=== PATIENT | female | born 1990 | race Caucasian/White ===

== ENCOUNTER → 2020-10-24 | Outpatient (CLI) | payer BC ==
--- NOTE | 2020-10-24 11:04 | USB ---
Reason for exam: clinical finding. History: Family history of breast cancer in maternal grandmother at age 60. Took hormonal contraceptives for 5 years beginning at age 18. Indicated problem(s): pain in the right breast. Physical Findings: Nurse did not find any significant physical abnormalities on exam. US Breast RT Right complete breast ultrasound includes all four quadrants, the retroareolar region and axilla. Finding demonstrates dense tissue seen at BB. These results were verbally communicated with the patient and result sheet given to the patient on 10/24/20. ASSESSMENT: Negative, BI-RAD 1 RECOMMENDATION: Routine screening mammogram of both breasts at age 40. Manage patient on a clinical basis.
== END | disposition home or self-care (01) ==
LOC: MERGE 09:40 → RADUSWWP 09:46
PROVIDERS: ATTEND Internal Medicine
DX: N64.4 Mastodynia (principal)

== ENCOUNTER → 2021-08-02 | Outpatient (CLI) | payer BC ==
--- NOTE | 2021-08-02 14:11 | MM ---
Reason for exam: clinical finding. History: Patient is nulliparous. Family history of breast cancer in maternal grandmother at age 60. Took hormonal contraceptives for 5 years beginning at age 18. Physical Findings: Nurse Summary: 1cm nodule in the left breast at 8 o'clock (nurse alondra). MG Diagnostic Mammo w CAD TENZIN Bilateral CC and MLO view(s) were taken. The breast tissue is heterogeneously dense. This may lower the sensitivity of mammography. There is no discrete abnormality including area of concern right breast. These results were verbally communicated with the patient and result sheet given to the patient on 08/02/21. ASSESSMENT: Incomplete: need additional imaging evaluation, BI-RAD 0 RECOMMENDATION: Ultrasound of the right breast.
--- NOTE | 2021-08-02 14:12 | USB ---
Reason for exam: additional evaluation requested from abnormal screening. History: Patient is nulliparous. Family history of breast cancer in maternal grandmother at age 60. Took hormonal contraceptives for 5 years beginning at age 18. US Breast Workup Limited RT Right limited breast ultrasound including focal area of concern, retroareolar and axilla demonstrates no cystic or solid lesion seen. No lesion seen at 8 o'clock palpable. These results were verbally communicated with the patient and result sheet given to the patient on 08/02/21. ASSESSMENT: Negative, BI-RAD 1 RECOMMENDATION: Routine screening mammogram of both breasts at age 40. Manage patient on a clinical basis.
== END | disposition home or self-care (01) ==
LOC: RADMAMWWP 11:00
PROVIDERS: ATTEND Internal Medicine
DX: N63.0 Unspecified lump in unspecified breast (principal)
CPT/HCPCS: 77066

== ENCOUNTER → 2022-09-19 | Outpatient (CLI) | payer BC ==
--- NOTE | 2022-09-19 11:52 | MM ---
Reason for Exam: Clinical finding. Last mammogram was performed 1 year(s) and 1 month(s) ago. Indicated Problems: Lump or thickening of the right side (size 1.5) for 2 Year(s). Patient History: Menarche at age 13. Patient has no children. Hormonal Contraceptives for 5 years from age 18 until age 23. Paternal cousin had breast cancer, age 40. Last menstrual period: 09/09/2022 Prior Study Comparison: 08/02/2021 Bilateral Diagnostic Mammogram, [facility]. Tissue Density: The breast tissue is heterogeneously dense. This may lower the sensitivity of mammography. Findings: Analyzed By CAD. No abnormality in the area of palpable abnormality/pain. No significant change from prior. Overall Assessment: Negative, BI-RAD 1 Management: Screening Mammogram of both breasts at age 40. Clinical management for patient's palpable abnormality/pain. A clinical breast exam by your physician is recommended on an annual basis and results should be correlated with mammographic findings. This exam should not preclude additional follow-up of suspicious palpable abnormalities. Results were given to the patient verbally at the time of exam. Electronically signed and approved by: Tyler Zhang DO
== END | disposition home or self-care (01) ==
LOC: RADMAMWWP 10:42
PROVIDERS: ATTEND Internal Medicine
DX: N63.0 Unspecified lump in unspecified breast (principal)
CPT/HCPCS: 77062; 77066

== ENCOUNTER → 2022-09-26 | Outpatient (CLI) | payer BC ==
[2022-09-26 10:39] LABS: Basophils # (A) 0.01 X 10*3/uL (0.00-0.10); Basophils % (A) 0.2 %; Eosinophils # (A) 0.15 X 10*3/uL (0.04-0.35); Eosinophils % (A) 2.7 %; HCT 36.5 % (37.2-46.3); Immature Grans, Automated 0.2 %; Lymphocytes # (A) 2.62 X 10*3/uL (0.90-5.00); Lymphocytes % (A) 47.5 %; MCH 32.3 pg (27.0-32.0); MCHC 32.9 g/dL (32.0-37.0); MCV 98.4 fL (80.0-97.0); Mean Platelet Volume 11.8 fL (9.5-12.2); Monocytes # (A) 0.47 X 10*3/uL (0.20-1.00); Monocytes % (A) 8.5 %; NRBC Per 100 WBC 0 /100 WBCS (0.0-0.0); Neutrophils # (A) 2.25 X 10*3/uL (1.80-7.70); Neutrophils % (A) 40.9 %; Platelet Count 228 X 10*3/uL (140-440); RBC 3.71 X 10*6/uL (4.10-5.20); WBC 5.51 X 10*3/uL (4.50-10.00)
[2022-09-26 11:06] LABS: ALT 11 U/L (8-44); AST 16 U/L (13-35); African American GFR (CKD) 125.7 (60.0-200.0); Albumin 4.4 g/dL (3.8-4.9); Alkaline Phosphatase 73 U/L (41-126); BUN/Creat Ratio 15.06 Ratio (12.00-20.00); Blood Urea Nitrogen 11.1 mg/dL (9.0-27.0); Calcium 9.4 mg/dL (8.7-10.3); Carbon Dioxide 26.5 mmol/L (20.0-27.5); Chloride 103 mmol/L (96-109); Chol/HDL Ratio 2.73 Ratio; Globulin 2.1 g/dL (1.6-3.3); Glucose 84 mg/dL (70-110); LDL Cholesterol,Calculated 85.1 mg/dL (0.0-131.0); Non-African American GFR(CKD) 108.5 (60.0-200.0); Sodium 140 mmol/L (135-145); Total Protein 6.5 g/dL (6.2-8.2)
== END | disposition home or self-care (01) ==
LOC: LABWHC1 07:03
PROVIDERS: ATTEND Internal Medicine
DX: Z00.01 Encounter for general adult medical examination with abnormal findings (principal); F31.76 Bipolar disorder, in full remission, most recent episode depressed; E55.9 Vitamin D deficiency, unspecified
CPT/HCPCS: 36415; 80053; 80061; 80175; 82306; 85025

== ENCOUNTER → 2022-10-10 | Outpatient (CLI) | payer BC ==
[2022-10-10 15:31] VITALS: BP 106/70; PULSE 80; RESP 16; TEMP 98.5
--- NOTE | 2022-10-10 15:42 | P.GSHP ---
History of Present Illness H&P Date: 10/10/22 Chief Complaint: right breast lump Maribeth is a 31 year old white female with a complaint of a right breast mass. She is seen in consultation for Dr. Haro. She had a bilateral mammogram on 09-19-22 which was BIRAD 1. She also had an ultrasound of the right breast on which was BIRAD 1. Is felt this lump approximately 2 years. It is located in the inferior aspect of the breast. It has not changed in size. It was painful pain worse around the time of her period. She has not felt any other lumps masses or nodules of concern in either breast. She states that the nodule is painful. It is more painful near her menstrual cycle. The pain is random in nature. It does not spread any place.It is a 4 on a scale of 1-10. Caffiene: 1 pop/day nicotine: none BCP: none; used them about 10 years ago for 5 years chocolate: occasional Family history: Maternal great-grandmother: Bilateral mastectomy Paternal cousin: mastectomy Hormonal History: menarche: 13 G0 Periods regular, last menstrual period started 2 days ago Surgical history: wisdom teeth Medical History: none Social History: nicotine: none alcohol: none drugs: none - Constitutional Constitutional: Denies chills, Denies fever - EENT Eyes: denies blurred vision, denies pain Ears: deny: decreased hearing, tinnitus Ears, nose, mouth and throat: Denies headache, Denies sore throat - Breasts Breasts: bilateral: as per HPI - Cardiovascular Cardiovascular: Denies chest pain, Denies shortness of breath - Respiratory Respiratory: Denies cough, Denies 7 - Gastrointestinal Gastrointestinal: Denies abdominal pain, Denies diarrhea, Denies nausea, Denies vomiting - Genitourinary (Female) Genitourinary: Denies dysuria, Denies hematuria - Genitourinary (Male) Genitourinary: Denies dysuria, Denies hematuria - Musculoskeletal Musculoskeletal: Denies myalgias - Integumentary Integumentary: Denies pruritus, Denies rash - Neurological Neurological: Denies numbness, Denies weakness - Psychiatric Psychiatric: Reports anxiety, Reports depression - Endocrine Endocrine: Reports fatigue, Denies weight change - Hematologic/Lymphatic Comment: none - Allergic/Immunologic Allergic/Immunologic: Reports as per HPI Medications and Allergies Home Medications Medication Instructions Recorded Confirmed Type Ergocalciferol [Vitamin D2 (1250 1,250 mcg PO WEEKLY 10/10/22 10/10/22 History Mcg = 28959 Iu)] FLUoxetine HCL [PROzac] 40 mg PO DAILY 10/10/22 10/10/22 History Vit No.179/Iron/Folic 1 each PO DAILY 10/10/22 10/10/22 History [ Tablet] Psyllium Husk [Metamucil] 0.4 gm PO BID 10/10/22 10/10/22 History buPROPion [Wellbutrin] 200 mg PO DAILY 10/10/22 10/10/22 History lamoTRIgine [LaMICtal] 150 mg PO DAILY 10/10/22 10/10/22 History Allergies Allergy/AdvReac Type Severity Reaction Status Date / Time No Known Allergies Allergy Verified 10/10/22 15:25 Surgical - Exam BMI: 23.8 - General moderate distress - Eyes normal ocular movement - ENT no hearing loss - Neck trachea midline - Respiratory normal respiratory effort - Cardiovascular Heart Sounds: normal: S1, S2 - Integumentary normal turgor - Neurologic no disoriented, no combative - Musculoskeletal normal gait - Psychiatric oriented to time, oriented to person, oriented to place, speech is normal, memory intact Breast Exam: BRA: 36B/C Inspection: Bilateral grade 1 ptosis Palpation: Right breast: Multi-positional exam no dominant masses or nodules of concern there is some fibrocystic change at the 6 o'clock position which is uncomfortable for the patient Right axilla: No adenopathy of concern Left breast: Multi-positional exam no dominant masses or nodules of concern Left axilla: No adenopathy of concern Results Ultrasound and mammogram reviewed Assessment and Plan Assessment: Impression: Symptomatic fibrocystic breast changes No lesions in either breast worn interventional biopsy at this time Plan: A Book will be given to the patient and her on mastodynia, I would recommend primrose oil at this time as well as avoiding all caffeinated products. The patient will follow-up in 6 weeks to see if the pain has decreased Cc: Dr. Haro
== END | disposition home or self-care (01) ==
LOC: WWCWWP 14:52
PROVIDERS: ATTEND Surgery
DX: Z53.9 Procedure and treatment not carried out, unspecified reason (principal)

== ENCOUNTER → 2022-12-08 | Outpatient (CLI) | payer BC ==
--- NOTE | 2022-12-08 08:53 | USB ---
Reason for Exam: Follow-up at short interval from prior study. Patient History: Menarche at age 13. Patient has no children. Hormonal Contraceptives for 5 years from age 18 until age 23. Paternal cousin had breast cancer, age 40. Technique: Method: Whole Breast Handheld. Prior Study Comparison: 08/02/2021 Bilateral Diagnostic Mammogram, [facility]. 09/19/2022 Bilateral MG 3D diag mammo w/cad TENZIN, [facility]. Findings: The whole breast of the right breast, the axilla of the right breast and the retroareolar of the right breast were scanned. A complete US of all four quadrants of the breast and retro-areolar region were reviewed. On current study technologist anderson a 4 x 3 x 3 mm oval avascular anechoic lesion without posterior features too small to further characterize but favor benign thin-walled cyst slightly lobulated peripheral margin. No additional lesions are present. Overall Assessment: Probably benign, BI-RAD 3 Management: Diagnostic Breast Ultrasound of the right breast in 6 months. A clinical breast exam by your physician is recommended on an annual basis and results should be correlated with mammographic findings. This exam should not preclude additional follow-up of suspicious palpable abnormalities. Results were given to the patient verbally at the time of exam. Electronically signed and approved by: Herrera Hernandez M.D.
== END | disposition home or self-care (01) ==
LOC: RADUSWWP 08:14
PROVIDERS: ATTEND Surgery
DX: N64.4 Mastodynia (principal); Z80.3 Family history of malignant neoplasm of breast

== ENCOUNTER → 2023-07-09 | Outpatient (CLI) | payer BC ==
--- NOTE | 2023-07-09 15:11 | USB ---
Reason for Exam: Follow-up at short interval from prior study. Patient History: Menarche at age 13. Patient has no children. Hormonal Contraceptives for 5 years from age 18 until age 23. Paternal cousin had breast cancer, age 40. Technique: Method: Targeted. Prior Study Comparison: 08/02/2021 Bilateral Diagnostic Mammogram, [facility]. 09/19/2022 Bilateral MG 3D diag mammo w/cad TENZIN, [facility]. Findings: The lower outer quadrant of the right breast, the axilla of the right breast and the retroareolar of the right breast were scanned. Targeted ultrasound of the right breast at 6-9 o'clock was performed for additional evaluation of the nipple and axilla. Slightly decreased size of oval avascular lesion without posterior acoustic features in the right breast that 8:00 3 cm from the nipple measuring 4 x 3 x 3 mm. There is increased internal complexity likely representing debris. Favored to represent a debris-filled cyst. Overall Assessment: Probably benign, BI-RAD 3 Management: Diagnostic Breast Ultrasound of the right breast in 6 months. A clinical breast exam by your physician is recommended on an annual basis and results should be correlated with mammographic findings. This exam should not preclude additional follow-up of suspicious palpable abnormalities. Results were given to the patient verbally at the time of exam. Electronically signed and approved by: Emmanuel Fofana D.O.
== END | disposition home or self-care (01) ==
LOC: RADUSWWP 14:48
PROVIDERS: ATTEND Surgery
DX: R92.8 Other abnormal and inconclusive findings on diagnostic imaging of breast (principal); Z80.3 Family history of malignant neoplasm of breast

== ENCOUNTER → 2023-11-12 | Outpatient (CLI) | payer BC ==
--- NOTE | 2023-11-12 11:51 | XR ---
EXAMINATION TYPE: XR cervical spine comp DATE OF EXAM: 11/12/2023 COMPARISON: NONE HISTORY: Ocular migraines TECHNIQUE: Four views are submitted. FINDINGS: The odontoid is intact. There are no compression deformities. The prevertebral soft tissue structur es are within normal limits. Slight anterolisthesis grade 1 C2-C3 and C3-C4. Lung apices clear. Neur al foramina patent. IMPRESSION: 1. Grade 1 anterolisthesis C2-C3 and C3-C4 possibly physiologic. No significant degenerative disc dis ease..
== END | disposition home or self-care (01) ==
LOC: RADXRMAIN 11:17
PROVIDERS: ATTEND Internal Medicine
DX: M43.12 Spondylolisthesis, cervical region (principal); G43.109 Migraine with aura, not intractable, without status migrainosus
CPT/HCPCS: 72050

== ENCOUNTER 2024-10-02 19:59 | Emergency (ER) | payer BC ==
[2024-10-02 20:11] VITALS: PULSE 78
--- NOTE | 2024-10-02 20:27 | ED ---
Abdominal Pain HPI - General Chief Complaint: Back Pain/Injury Stated Complaint: poss kidney stone Time Seen by Provider: 10/02/24 20:14 Source: patient, RN notes reviewed, old records reviewed Mode of arrival: ambulatory Limitations: no limitations - History of Present Illness Initial Comments: This is a 33 female to the ER for evaluation of abdominal pain. Patient presents today for significant abdominal pain here in the emergency room with left-sided flank pain severe sharp pain that was sudden onset comes and goes. No travel no sick contacts no other complaints no fevers no cough or congestion no history of kidney stones denies MD Complaint: abdominal pain, flank pain, other (Left-sided flank pain) -: hour(s) Location: LLQ, L flank Radiation: suprapubic Migration to: L flank Severity: moderate Severity scale (1-10): 6 Quality: sharp Consistency: intermittent Worsens With: nothing - Related Data Home Medications Medication Instructions Recorded Confirmed Ergocalciferol [Vitamin D2 (1250 1,250 mcg PO WEEKLY 10/10/22 01/16/23 Mcg = 19743 Iu)] FLUoxetine HCL [PROzac] 40 mg PO DAILY 10/10/22 01/16/23 Psyllium Husk [Metamucil] 0.4 gm PO BID 10/10/22 01/16/23 buPROPion [Wellbutrin] 200 mg PO DAILY 10/10/22 01/16/23 lamoTRIgine [LaMICtal] 150 mg PO DAILY 10/10/22 01/16/23 Amoxicillin 875 mg PO Q12HR 01/16/23 01/16/23 [place] Oil 500 mg PO DAILY 01/16/23 01/16/23 Pseudoephedrine [Sudafed] 30 mg PO Q4H 01/16/23 01/16/23 Allergies Allergy/AdvReac Type Severity Reaction Status Date / Time No Known Allergies Allergy Verified 10/02/24 20:11 Review of Systems ROS Statement: Those systems with pertinent positive or pertinent negative responses have been documented in the HPI. ROS Other: All systems not noted in ROS Statement are negative. Past Medical History Past Medical History: No Reported History History of Any Multi-Drug Resistant Organisms: MRSA Date of last positivie culture/infection: 2011 MDRO Source:: right knee Past Surgical History: No Surgical Hx Reported Past Psychological History: ADD/ADHD, Anxiety, Bipolar, Depression Smoking Status: Former smoker Past Alcohol Use History: Rare Past Drug Use History: None Reported General Exam Limitations: no limitations General appearance: alert, in no apparent distress Head exam: Present: atraumatic, normocephalic, normal inspection Eye exam: Present: normal appearance, PERRL, EOMI. Absent: scleral icterus, conjunctival injection, periorbital swelling ENT exam: Present: normal exam, mucous membranes moist Neck exam: Present: normal inspection. Absent: tenderness, meningismus, lymphadenopathy Respiratory exam: Present: normal lung sounds bilaterally. Absent: respiratory distress, wheezes, rales, rhonchi, stridor Cardiovascular Exam: Present: regular rate, normal rhythm, normal heart sounds. Absent: systolic murmur, diastolic murmur, rubs, gallop, clicks GI/Abdominal exam: Present: soft, normal bowel sounds. Absent: distended, tenderness, guarding, rebound, rigid Extremities exam: Present: normal inspection, full ROM, normal capillary refill. Absent: tenderness, pedal edema, joint swelling, calf tenderness Back exam: Present: normal inspection Neurological exam: Present: alert, oriented X3, CN II-XII intact Psychiatric exam: Present: normal affect, normal mood Skin exam: Present: warm, dry, intact, normal color. Absent: rash Course Vital Signs 10/02/24 10/02/24 20:09 22:08 Temperature 98.3 F 98.4 F Pulse Rate 78 Respiratory 18 69 H Rate Blood Pressure 101/49 102/56 O2 Sat by Pulse 97 97 Oximetry - Reevaluation(s) Reevaluation #1: 10/02/24 20:27 Medical records reviewed Reevaluation #2: 10/02/24 21:48 Patient symptoms improved Reevaluation #3: 10/02/24 21:48 Patient informed of results questions answered Reevaluation #4: Was pt. sent in by a medical professional or institution (, PA, MEDICAL RECORDS CUSTODIAN, urgent care, hospital, or alf...) When possible be specific @ -no Did you speak to anyone other than the patient for history (EMS, parent, family, police, friend...)? What history was obtained from this source @ -no Did you review nursing and triage notes (agree or disagree)? Why? @ -agree Are old charts reviewed (outside hosp., previous admission, EMS record, old EKG, old radiological studies, urgent care reports/EKG's, alf records)? Report findings @ -yes Differential Diagnosis (chest pain, altered mental status, abdominal pain women, abdominal pain men, vaginal bleeding, weakness, fever, dyspnea, syncope, headache, dizziness, GI bleed, back pain, seizure, CVA, palpatations, mental health, musculoskeletal)? @ -prior EKG interpreted by me (3pts min.). @ -no X-rays interpreted by me (1pt min.). @ -no CT interpreted by me (1pt min.). @ -yes negative for acute disease U/S interpreted by me (1pt. min.). @ -no What testing was considered but not performed or refused? (CT, X-rays, U/S, labs)? Why? @ -none What meds were considered but not given or refused? Why? @ -none Did you discuss the management of the patient with other professionals (professionals i.e. , PA, MEDICAL RECORDS CUSTODIAN, lab, RT, psych nurse, social worker aide, cement tile maker, teacher, signals officer, continuous pillowcase cutter)? Give summary @ -no Was smoking cessation discussed for >3mins.? @ -no Was critical care preformed (if so, how long)? @ -no Were there social determinants of health that impacted care today? How? (Homelessness, low income, unemployed, alcoholism, drug addiction, transportation, low edu. Level, literacy, decrease access to med. care, care home, rehab)? @ -none Was there de-escalation of care discussed even if they declined (Discuss DNR or withdrawal of care, Hospice)? DNR status @ -no What co-morbidities impacted this encounter? (DM, HTN, Smoking, COPD, CAD, Cancer, CVA, ARF, Chemo, Hep., AIDS, mental health diagnosis, sleep apnea, morbid obesity)? @ -none Was patient admitted / discharged? Hospital course, mention meds given and route, prescriptions, significant lab abnormalities, going to OR and other pertinent info. @ - 33 female to ER for evaluation abdominal pain left-sided flank pain severe no kidney stones noted patient can be discharged home Discharge Undiagnosed new problem with uncertain prognosis? @ -no Drug Therapy requiring intensive monitoring for toxicity (Heparin, Nitro, Insulin, Cardizem)? @ -no Were any procedures done? @ -no Diagnosis/symptom? @ -Flank pain kidney stone pain abdominal pain Acute, or Chronic, or Acute on Chronic? @ -Acute Uncomplicated (without systemic symptoms) or Complicated (systemic symptoms)? @ -Complicated Side effects of treatment? @ -no Exacerbation, Progression, or Severe Exacerbation? @ -exacerbation Poses a threat to life or bodily function? How? (Chest pain, [place], [place], pneumonia, PE, COPD, DKA, ARF, appy, cholecystitis, CVA, Diverticulitis, Homicidal, Suicidal, threat to staff... and all critical care pts) @ -no Reevaluation #5: Differential Abdominal Pain Women: Appendicitis, Cholecystitis, diverticulosis, ischemic bowel, pancreatitis, hepatitis, UTI, gastroenteritis, AAA, incarcerated hernia, bowel obstruction, constipation, inflammatory bowel, hepatitis, peptic ulcer disease, splenic infarction, perforated viscus, vulvitis, ovarian torsion, PID, kidney stone, placenta abruption, this is not meant to be an all-inclusive list Medical Decision Making - Medical Decision Making 33 female to ER for evaluation abdominal pain left-sided flank pain severe no kidney stones noted patient can be discharged home - Lab Data Result diagrams: 10/02/24 20:23 10/02/24 20:23 Lab Results 10/02/24 10/02/24 10/02/24 Range/Units 20:23 20:23 20:23 WBC 7.4 (3.8-10.6) k/uL RBC 3.92 (3.80-5.40) m/uL Hgb 12.9 (11.4-16.0) gm/dL Hct 38.8 (34.0-46.0) % MCV 98.8 (80.0-100.0) fL MCH 33.0 (25.0-35.0) pg MCHC 33.3 (31.0-37.0) g/dL RDW 12.1 (11.5-15.5) % Plt Count 247 (150-450) k/uL MPV 8.5 Neutrophils % 51 % Lymphocytes % 39 % Monocytes % 5 % Eosinophils % 3 % Basophils % 0 % Neutrophils # 3.8 (1.3-7.7) k/uL Lymphocytes # 2.9 (1.0-4.8) k/uL Monocytes # 0.4 (0-1.0) k/uL Eosinophils # 0.2 (0-0.7) k/uL Basophils # 0.0 (0-0.2) k/uL Sodium (137-145) mmol/L Potassium (3.5-5.1) mmol/L Chloride (98-107) mmol/L Carbon Dioxide (22-30) mmol/L Anion Gap mmol/L BUN (7-17) mg/dL Creatinine (0.52-1.04) mg/dL Est GFR (CKD-EPI)AfAm (>60 ml/min/1.73 sqM) Est GFR (CKD-EPI)NonAf (>60 ml/min/1.73 sqM) Glucose (74-99) mg/dL Calcium (8.4-10.2) mg/dL Total Bilirubin (0.2-1.3) mg/dL AST (14-36) U/L ALT (4-34) U/L Alkaline Phosphatase (38-126) U/L Total Protein (6.3-8.2) g/dL Albumin (3.5-5.0) g/dL Amylase (30-110) U/L Lipase (23-300) U/L Urine Color Colorless Urine Appearance Clear (Clear) Urine pH 7.0 (5.0-8.0) Ur Specific [place] 1.017 (1.001-1.035) Urine Protein Negative (Negative) Urine Glucose (UA) Negative (Negative) Urine Ketones Negative (Negative) Urine Blood Small H (Negative) Urine Nitrite Negative (Negative) Urine Bilirubin Negative (Negative) Urine Urobilinogen <2.0 (<2.0) mg/dL Ur Leukocyte Esterase Large H (Negative) Urine RBC 4 (0-5) /hpf Urine WBC 1 (0-5) /hpf Urine WBC Clumps Rare H (None) /hpf Ur Squamous Epith Cells 5 H (0-4) /hpf Urine Bacteria Rare H (None) /hpf Urine Mucus Rare H (None) /hpf Urine HCG, Qual Not Detected (Not Detectd) 10/02/24 Range/Units 20:23 WBC (3.8-10.6) k/uL RBC (3.80-5.40) m/uL Hgb (11.4-16.0) gm/dL Hct (34.0-46.0) % MCV (80.0-100.0) fL MCH (25.0-35.0) pg MCHC (31.0-37.0) g/dL RDW (11.5-15.5) % Plt Count (150-450) k/uL MPV Neutrophils % % Lymphocytes % % Monocytes % % Eosinophils % % Basophils % % Neutrophils # (1.3-7.7) k/uL Lymphocytes # (1.0-4.8) k/uL Monocytes # (0-1.0) k/uL Eosinophils # (0-0.7) k/uL Basophils # (0-0.2) k/uL Sodium 138 (137-145) mmol/L Potassium 3.8 (3.5-5.1) mmol/L Chloride 106 (98-107) mmol/L Carbon Dioxide 24 (22-30) mmol/L Anion Gap 8 mmol/L BUN 14 (7-17) mg/dL Creatinine 0.73 (0.52-1.04) mg/dL Est GFR (CKD-EPI)AfAm >90 (>60 ml/min/1.73 sqM) Est GFR (CKD-EPI)NonAf >90 (>60 ml/min/1.73 sqM) Glucose 104 H (74-99) mg/dL Calcium 9.3 (8.4-10.2) mg/dL Total Bilirubin 0.5 (0.2-1.3) mg/dL AST 22 (14-36) U/L ALT 15 (4-34) U/L Alkaline Phosphatase 75 (38-126) U/L Total Protein 7.2 (6.3-8.2) g/dL Albumin 4.6 (3.5-5.0) g/dL Amylase 51 (30-110) U/L Lipase 76 (23-300) U/L Urine Color Urine Appearance (Clear) Urine pH (5.0-8.0) Ur Specific [place] (1.001-1.035) Urine Protein (Negative) Urine Glucose (UA) (Negative) Urine Ketones (Negative) Urine Blood (Negative) Urine Nitrite (Negative) Urine Bilirubin (Negative) Urine Urobilinogen (<2.0) mg/dL Ur Leukocyte Esterase (Negative) Urine RBC (0-5) /hpf Urine WBC (0-5) /hpf Urine WBC Clumps (None) /hpf Ur Squamous Epith Cells (0-4) /hpf Urine Bacteria (None) /hpf Urine Mucus (None) /hpf Urine HCG, Qual (Not Detectd) - Radiology Data Radiology results: report reviewed (CT abdomen pelvis positive for no acute disease), image reviewed Disposition Clinical Impression: Flank pain Disposition: HOME SELF-CARE Condition: Good Instructions (If sedation given, give patient instructions): Kidney Stones (ED), Flank Pain (ED) Is patient prescribed a controlled substance at d/c from ED?: No Referrals: Ernestina Haro MD [Primary Care Provider] - 1-2 days
[2024-10-02 20:37] LABS: Basophils % (A) 0 %; Eosinophils # (A) 0.2 k/uL (0-0.7); Eosinophils % (A) 3 %; HCT 38.8 % (34.0-46.0); HGB 12.9 gm/dL (11.4-16.0); Lymphocytes # (A) 2.9 k/uL (1.0-4.8); Lymphocytes % (A) 39 %; MCHC 33.3 g/dL (31.0-37.0); MCV 98.8 fL (80.0-100.0); Mean Platelet Volume 8.5; Monocytes # (A) 0.4 k/uL (0-1.0); Monocytes % (A) 5 %; Neutrophils # (A) 3.8 k/uL (1.3-7.7); Neutrophils % (A) 51 %; Platelet Count 247 k/uL (150-450); RBC 3.92 m/uL (3.80-5.40); RDW 12.1 % (11.5-15.5); WBC 7.4 k/uL (3.8-10.6)
[2024-10-02 20:41] LABS: Appearance,Urine Clear (Clear); Bacteria,Urine Rare /hpf; Bilirubin,Urine Negative (Negative); Blood,Urine Small (Negative); Color,Urine Colorless; Glucose,Urine (UA) Negative (Negative); Ketones,Urine Negative (Negative); Leukocyte Esterase,Urine Large (Negative); Mucus,Urine Rare /hpf; Nitrite,Urine Negative (Negative); Protein,Urine Negative (Negative); RBC,Urine 4 /hpf (0-5); Specific Gravity,Urine 1.017 (1.001-1.035); Squamous Epithelial Cell,Urine 5 /hpf (0-4); Urobilinogen,Urine <2.0 mg/dL (<2.0); WBC,Urine 1 /hpf (0-5)
[2024-10-02 20:47] LABS: ALT 15 U/L (4-34); AST 22 U/L (14-36); African American GFR (CKD) >90 (>60 ml/min/1.73 sqM); Albumin 4.6 g/dL (3.5-5.0); Alkaline Phosphatase 75 U/L (38-126); Amylase 51 U/L (30-110); Anion Gap 8 mmol/L; Blood Urea Nitrogen 14 mg/dL (7-17); Calcium 9.3 mg/dL (8.4-10.2); Carbon Dioxide 24 mmol/L (22-30); Chloride 106 mmol/L (98-107); Glucose 104 mg/dL (74-99); Lipase 76 U/L (23-300); Non-African American GFR(CKD) >90 (>60 ml/min/1.73 sqM); Potassium 3.8 mmol/L (3.5-5.1); Sodium 138 mmol/L (137-145); Total Bilirubin 0.5 mg/dL (0.2-1.3); Total Protein 7.2 g/dL (6.3-8.2)
[2024-10-02] MEDS: SODIUM CHLORIDE 0.9% 1,000 ML IV STA (20:50)
[2024-10-02] MEDS: SODIUM CHLORIDE 0.9% 500 ML 500 ML IV STA (20:50)
[2024-10-02] MEDS: KETOROLAC 15 MG/ML 1 ML VIAL IVP STA (20:51)
--- NOTE | 2024-10-02 21:33 | CT ---
EXAMINATION TYPE: CT abdomen pelvis wo con DATE OF EXAM: 10/02/2024 9:15 PM COMPARISON: None. CLINICAL INDICATION: Female, 33 years old with history of abdominal pain; LEFT FLANK PAIN TECHNIQUE: Axial CT abdomen pelvis wo con;Sagittal and coronal reformats were created on a separate workstation. Contrast used: mL of , (none if empty) Oral contrast used: without Oral Contrast (none if empty) CT DLP: 408.5 mGycm, Automated exposure control for dose reduction was used. FINDINGS: LOWER CHEST: Unremarkable ABDOMEN LIVER: Unremarkable GALLBLADDER AND BILE DUCTS: Unremarkable. PANCREAS: Unremarkable. SPLEEN: Unremarkable. ADRENAL GLANDS: Unremarkable. KIDNEYS AND URETERS: No evidence of hydronephrosis or renal calculus. The ureters are unremarkable. PELVIS BLADDER: No evidence for wall thickening or mass given limitations of exam. REPRODUCTIVE: Unremarkable. ABDOMEN & PELVIS STOMACH AND BOWEL: No evidence of bowel obstruction. The appendix is visualized and within normal lomeli its. There is a large amount stool throughout the colon. PERITONEUM/RETROPERITONEUM: No evidence of pneumoperitoneum or free fluid. VASCULATURE: No evidence of aortic aneurysm. MUSCULOSKELETAL: No acute osseous abnormalities LYMPH NODES: No gross evidence for lymphadenopathy. SOFT TISSUE/ABDOMINAL WALL: Unremarkable IMPRESSION: 1. No evidence for acute abdominal process. 2. Moderate amount stool throughout colon. 3. Normal appendix. 4. No obstructive uropathy or renal calculus. [facility] Suresh Yu, , 10/02/2024 9:31 PM
[2024-10-02] MEDS: ACET/COD 300 MG/30 MG STARTER PACK 6 TAB BTL PO STA (21:39)
[2024-10-02] MEDS: ONDANSETRON 4 MG ODT STARTER PACK 2 TAB BTL PO STA (21:39)
[2024-10-02] MEDS: ONDANSETRON 4 MG/2 ML VIAL IVP STA (21:55)
[2024-10-02 22:10] VITALS: BP 102/56; RESP 69; TEMP 98.4
== END 2024-10-02 22:07 | disposition home or self-care (01) ==
LOC: EC 19:59
DX: R10.9 Unspecified abdominal pain (principal); Z87.891 Personal history of nicotine dependence
CPT/HCPCS: 36415; 80053; 82150; 83690; 85025; 81001; 81025; 74176; 99284; 96374; 96361; J1885; S0119